=== PATIENT | male | born 1960 | race Caucasian/White ===

== ENCOUNTER 2017-10-08 16:30 | Emergency (ER) | payer OTHER, MEDICAID ==
[~2017-10-08] VITALS: Ht 182.9 cm; Wt 113.4 kg
[2017-10-08] MEDS ORDERED: SODIUM CHLORIDE 0.9% 1,000 ML IV ONE ×2 (16:51→17:19)
[2017-10-08 18:29] LABS: Basophils # (auto) 0 uL; Basophils % (auto) 0.2 % (0.0-2.0); Eosinophils # (auto) 0 uL; Eosinophils % (auto) 0.2 % (0.0-7.0); Hematocrit 36.4 % (41.0-53.0); Hemoglobin 12.1 g/dL (13.5-17.5); Lymphocytes # (auto) 0.8 uL; Lymphocytes % (auto) 4.6 % (10.0-50.0); Mean Corpuscular Hemoglobin 31.9 pg (28.0-32.0); Mean Corpuscular Hgb Conc. 33.3 g/dL (32.0-36.0); Mean Corpuscular Volume 95.9 fL (80.0-100.0); Monocytes # (auto) 1.1 uL; Monocytes % (auto) 6.6 % (0.0-12.0); Neutrophils # (auto) 14.8 uL; Neutrophils % (auto) 88.4 % (37.0-80.0); Nucleated Red Blood Cells % 0.1 %; Platelet Count (auto) 328 10^3/uL (140-450); Red Blood Cells 3.79 10^6/uL (4.5-5.90); Red Cell Distribution Width 14.4 % (11.8-14.3); White Blood Cell 16.7 10^3/uL (4.4-10.8)
[2017-10-08 18:32] LABS: Albumin 2.6 g/dL (3.4-5.0); BUN/Creatinine Ratio 20.1; Calcium 8.1 mg/dL (8.5-10.1); Potassium 4.4 mmol/L (3.5-5.1)
[2017-10-08 18:35] LABS: Bilirubin, Total 0.6 mg/dL (0.2-1.0); Total Protein 7.9 g/dL (6.4-8.2)
[2017-10-08] MEDS ORDERED: MORPHINE SULFATE 8mg/ml INJ SDV IV ONE (22:00)
[2017-10-08] MEDS ORDERED: ONDANSETRON HCL 4 MG/2 ML VIAL IV ONE (22:00)
[2017-10-08] MEDS ORDERED: NALBUPHINE HCL 10 MG/1ml INJECTION ONE (22:12)
[2017-10-08] MEDS ORDERED: NALBUPHINE HCL 10 MG/1ml INJECTION IV ONE (22:30)
[2017-10-09 01:22] LABS: Urine Amorphous Crystal FEW /hpf (None Seen); Urine Bacteria MANY /hpf (None Seen); Urine Blood 1+ /uL (Negative); Urine Hyaline Cast FEW /lpf (0 - 2); Urine Mucus FEW (None Seen); Urine Specific Gravity 1.016 (1.001-1.035); Urine WBC 33 /hpf (0 - 3)
[2017-10-09] MEDS ORDERED: cefTRIAXone 1GM/10ml IVPUSH 10 ML IV ONE (01:30)
[2017-10-09] MEDS ORDERED: TEMAZEPAM 15 MG CAP PO ONE (01:30)
[2017-10-09] MEDS ORDERED: ASPirin 81 mg TAB PO ONE (05:30)
[2017-10-09 08:44] VITALS: BP 122/85
== END 2017-10-09 08:58 | disposition short-term general hospital (02) ==
LOC: ER 16:30
DX: E86.0 Dehydration (principal); I69.352 Hemiplegia and hemiparesis following cerebral infarction affecting left dominant side; G35 Multiple sclerosis; I95.9 Hypotension, unspecified; G82.20 Paraplegia, unspecified; E11.9 Type 2 diabetes mellitus without complications; I10 Essential (primary) hypertension; E66.9 Obesity, unspecified; Z68.33 Body mass index [BMI] 33.0-33.9, adult
CPT/HCPCS: 36415; 36600; 71045; 80053; 81001; 82805; 82962; 83605; 83735; 84443; 84484; 85025; 93005; 96361; 96374; 96375; 99285; J2300; J2405; 94761; J0696